=== PATIENT | female | born 1975 | race Caucasian/White ===

== ENCOUNTER 2024-05-19 10:29 | Outpatient (AMB) | payer OTHER, SELFPAY ==
--- NOTE | 2024-05-19 10:36 | MHC.PC.OV ---
Vital Signs 05/19/24 10:51 Height 5 ft 3.23 in Weight 174 lb 2 oz BMI 30.6 BP 122/84 Blood Pressure Location Rt brachial Position Sitting Pulse 74 Pulse Source Pulse Oximeter Temp 98.4 F Temp Source Oral Pulse Oximetry (%) 99 Oxygen Delivery Method Room Air Intake Visit Reasons: gwen anjali /Review meds Intake Note: New patient visit. Sinus congestion and sore throat. Environmental Monitoring Technician Required: No Allergies No Known Allergies Allergy (Verified 05/19/24 10:47) Tobacco use date assessed: 05/19/24 Dental Screening Dental Screen Date: 05/19/24 Did you have a dental visit in the last 12 months?: Yes Did you have a dental problem in the last 6 months where you did not have access to dental care?: No Was dental information given to patient?: Patient has dentist HPI HPI Comments History of Present Illness Details The patient is a 49 year old female with a past medical history of depression/anxiety, memory loss presenting to [facility] care BH: stable on sertraline, memantine ROS CONSTITUTIONAL: Denies weight loss, fever and chills. HEENT: sinus congestion RESPIRATORY: Denies SOB and cough. CV: Denies palpitations and CP GI: Denies abdominal pain, nausea, vomiting and diarrhea. : Denies dysuria and urinary frequency. MSK: Denies new myalgia and joint pain. SKIN: Denies rash and pruritus. NEUROLOGICAL: Denies headache PSYCHIATRIC: Denies recent changes in mood. PHYSICAL EXAM: GENERAL: Alert and oriented x 3. NAD EYES: EOMI. Anicteric. HENT: boggy nasal mucosa LUNGS: Clear to auscultation bilaterally. CARDIOVASCULAR: Regular rate and rhythm. No murmur. No JVD. ABDOMEN: Soft, non-tender +bs EXTREMITIES: No edema. Non-tender. SKIN: No rashes or lesions. Warm. NEUROLOGIC: No focal neurological deficits. CN II-XII grossly intact PSYCHIATRIC: Cooperative. 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 1. Little interest or pleasure in doing things: not at all 2. Feeling down, depressed, or hopeless: not at all 3. Trouble falling or staying asleep, or sleeping too much: not at all 4. Feeling tired or having little energy: several days 5. Poor appetite or overeating: several days 6. Feeling bad about yourself - or that you are a failure or have let yourself or your family down: not at all 7. Trouble concentrating on things, such as reading the newspaper or watching television: not at all 8. Moving or speaking so slowly that other people could have noticed. Or the opposite - being so fidgety or restless that you have been moving around a lot more than usual: not at all 9. Thoughts that you would be better off or of hurting yourself in some way: not at all Total score: 2 Depression Screening Interpretation: Negative Depression Screening Done: Yes 68744 - PHQ-9 Billing: Yes Source: Developed by Drs. Piyush Moreno, Rose Marie Burnett, Jordy Mccallum and colleagues, with an educational simran from [employer]. Thrive Questionnaire Date Thrive assessed: 05/12/24 I am a: Patient What is your living situation today?: I have a steady place to live Within the past 12 months, did the food you bought not last and you didn't have the money to get more?: Never true Within the past 12 months, did you worry whether your food would run out before you got money to buy more?: Never true Do you have trouble paying for medicines?: No Do you have trouble getting transportation to medical appointments?: No Do you have trouble paying your heating and electricity bill?: No Do you have trouble taking care of your child, family member or friend?: No Do you have trouble with day-to-day activities such as bathing, preparing meals, shopping, managing finances, etc.?: No Are you currently unemployed and looking for a job?: No Are you interested in more education?: No Please select the resources that you would like help with: None Currently or been in a relationship where the following occur: No concerns reported THRIVE Score: 0 AUDIT C Alcohol Use Questionnaire (AUDIT-C) 1. How often do you have a drink containing alcohol?: 2-4 times a month 2. How many drinks containing alcohol do you have on a typical day when you are drinking?: 1 or 2 3. How often do you have six or more drinks on one occasion?: Never Total Score: 2 ODETTE-7 AMB Questionnaire ODETTE-7 Date ODETTE - 7 assessed: 05/19/24 Feeling nervous, anxious, or on edge: 1 = Several days Not being able to stop or control worryin = Not at all Worrying too much about different things: 0 = Not at all Trouble relaxin = Not at all Being so restless that it is hard to sit still: 0 = Not at all Becoming easily annoyed or irritable: 0 = Not at all Feeling afraid as if something awful might happen: 0 = Not at all Total ODETTE-7 score (0-4 normal; 5-9 mild; 10-14 moderate; 15-21 severe): 1 Source: Developed by Drs. Piyush Moreno, Rose Marie Burnett, Jordy Mccallum and colleagues, with an educational simran from [employer]. ODETTE-7 Assessment Billing ODETTE-7 Assessment Tool: ODETTE-7 Assessment 25877 Physical exam (Primary Care) Vital Signs: Last Vital Signs Temp 98.4 F 05/19/24 10:51 Pulse 74 05/19/24 10:51 BP 122/84 05/19/24 10:51 Pulse Ox 99 05/19/24 10:51 Oxygen Delivery Method Room Air 05/19/24 10:51 BMI result Body Mass Index 30.6 Tobacco/Smoking Status: Tobacco use Status Tobacco use date assessed 05/19/24 05/19/24 11:01 Patient Tobacco Use Status Never used Tobacco 05/19/24 11:01 e-Cigarette/Vaping Use Never Used 05/19/24 11:01 PHQ-9: PHQ-9 Score PHQ-9: Total score 2 06/06/24 18:46 Depression Screening Interpretation: Negative Thrive Assessment: Date of Thrive Assessment Date Thrive assessed 05/12/24 05/19/24 10:42 Currently or been in a relationship where the following occur: No concerns reported Coding Level of Care Code Est Pt Level 4 (63954) Diagnoses Elevated cholesterol E78.00 Anxiety F41.9 Additional Codes ODETTE-7 Assessment Billing - ODETTE-7 Assessment Tool: ODETTE-7 Assessment 53025 ([id number]) PHQ-9 - 14610 - PHQ-9 Billing: Yes ([id number]) Assessment & Plan Assessment & Plan (1) Elevated cholesterol: Code(s): E78.00 - Pure hypercholesterolemia, unspecified Category: Medical Plan: Continue to monitor labs (2) Anxiety: Code(s): F41.9 - Anxiety disorder, unspecified Category: Medical Plan: Continue sertraline, memantine Orders: Referrals [facility] Referral R63.5 - Abnormal weight gain, E78.00 - Pure hypercholesterolemia, unspecified, F41.9 - Anxiety disorder, unspecified Gastroenterology Referral Z12.11 - Encounter for screening for malignant neoplasm of colon Medications: New sertraline 75 mg (1.5 x 50 mg) PO DAILY 135 tabs 3RF 90 days amoxicillin-pot clavulanate 875-125 mg 1 tab PO BID 20 tabs 0RF amoxicillin-pot clavulanate 875-125 mg 1 tab PO BID 20 tabs 0RF
[2024-05-19 10:51] VITALS: BP 122/84; PULSE 74; TEMP 36.9; O2SAT 99; BMI 30.6
== END 2024-05-19 11:33 | disposition home or self-care (01) ==
PROVIDERS: PCP Internal Medicine; Visit Provider Internal Medicine
DX: E78.00 Pure hypercholesterolemia, unspecified (principal); F41.9 Anxiety disorder, unspecified

== ENCOUNTER 2024-08-28 15:01 | Outpatient (AMB) | payer OTHER, SELFPAY ==
[2024-08-28 15:03] VITALS: BP 136/90; PULSE 62; O2SAT 100
--- NOTE | 2024-08-28 15:03 | AM.OFFWIN_ITS ---
Intake Vital Signs 08/28/24 15:03 Weight 175 lb BP 136/90 H Blood Pressure Location Lt brachial Position Sitting Pulse 62 Pulse Source Pulse Oximeter Pulse Oximetry (%) 100 Oxygen Delivery Method Room Air Intake Visit Reasons: EP Pressure in rt ear, dizzy Intake Note: Patient here for right ear pressure that has been present for a couple of days but today while at work she became dizzy. Patient Tobacco Use Status: Never used Tobacco Allergies No Known Allergies Allergy (Verified 08/28/24 15:03) Do you need a note to return to daycare/school/sports/work: No HPI HPI Comments History of Present Illness Details 49 y/o female patient who presents to [facility] with c/o right ear pressure for 2 days. C/o Feeling Dizzy this morning. Denies any recent cold or respiratory infection. Denies any head trauma or injury. 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 Current occupational exposures/hazards: No Cognitive needs: No Hearing needs: No Vision needs: No Review of Systems Const All systems reviewed & are unremarkable except as noted in HPI and below Physical Exam Vital Signs: Last Vital Signs Pulse 62 08/28/24 15:03 BP 136/90 H 08/28/24 15:03 Pulse Ox 100 08/28/24 15:03 Oxygen Delivery Method Room Air 08/28/24 15:03 Const General: cooperative and no acute distress Nutritional Appearance: overweight Orientation/consciousness: patient oriented x3 HEENT Head: Yes normocephalic Ears: external ears normal and TM abnormal bulging bilateral and with fluid behind the TM bilateral General nose exam: Abnormal mucous membranes and turbinates present pale Face and sinus: Yes sinuses nontender Mouth: moist mucous membranes Throat: Yes uvula midline Resp Effort & Inspection: normal respiratory effort and able to speak in complete sentences Auscultation: clear to auscultation bilaterally, no crackles, no rales, no rhonchi and no wheezes Cardio Heart sounds: S1 normal heart sound present and S2 normal heart sound present Neuro General: patient oriented x3 Assessment & Plan Assessment & Plan (1) Dizziness: Code(s): R42 - Dizziness and giddiness Plan: Ordered Cetirizine Fluid behind both TM No signs of infection. (2) Fluid level behind tympanic membrane of both ears: Code(s): H65.93 - Unspecified nonsuppurative otitis media, bilateral Plan: Ordered Cetirizine Fluid behind both TM No signs of infection Medications: New cetirizine (Zyrtec) 10 mg PO DAILY 30 caps 0RF H65.93 - Unspecified nonsuppurative otitis media, bilateral, R42 - Dizziness and giddiness Coding Level of Care Code Est Pt Level 4 (46423) Diagnoses Dizziness R42 Fluid level behind tympanic membrane of both ears H65.93 Time Spent (min) 20
--- OUTSIDE RECORDS SUMMARY | 2024-08-28 18:44 | XMS_ITS | Clinical Summary ---
Author Organization [facility] Address [address] [place] [address] Phone Care Team Providers Care Material Dispatcher Name Role Phone Danna Bergeron MD Primary Care Provider Allergies No known active allergies Medications brimonidine-arnav oloL (COMBIGAN) 0.2-0.5 % ophthalmic solution OU QD Active bromfenac 0.07 % drops apply 1 Drop to the eye daily. Once drop in each eye once a day Active ibuprofen (ADVIL,MOTRIN) 600 mg tablet 1tab PO now 0 Active memantine HCl (MEMANTINE ORAL) Take 10 mg by mouth daily. Active sertraline (ZOLOFT) 50 mg tablet Take 1.5 Tablets by mouth daily. 4 Active polyethylene glycol (Golytely) 236-22.74-6.74 -5.86 gram solution Take 4L by mouth once for one dose. May substitue any PEG. Starting at 6PM the night before your procedure drink 1 8oz glasses at your own pace until you complete half of the gallon. Finish 2nd half of the gallon 5 hours before your procedure. 4000 mL 4 Active bisacodyL (DULCOLAX) 5 mg EC tablet Take 2 tablets by mouth right before beginning bowel prep. See instructions provided by the office 2 tablet 4 Active multivitamin tablet Take 1 tablet by mouth 1 (one) time each day. 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 Overview (05/05/2024): Pars planitis - followed by dean Xavier - Idiopathic anterior and intermediate uveitis, OU; secondary glaucoma; posterior subcapsular cataract OS-steroid induced Encounters Date Type Department Care Team Description 06/12/2024 2:13 PM EST Anesthesia Event [facility] [address] [place] [address] Negrito Roach MD 06/12/2024 12:52 PM EST - 06/12/2024 11:59 PM EST Hospital Encounter [facility] [address] [place] [address] Yanick Muniz MD Chang, Daniel J, MD Encounter for screening for malignant neoplasm of colon Discharge Disposition: Home or Self Care from Last 3 Months Immunizations Name Administration Dates Next Due Influenza Quadravalent, MDCK , 0.5ml, preservative free (Flucelvax) 6mo and older 03/14/2021 PPD Test 04/18/2011,08/24/2009 Td Tetanus diptheria (Tdvax) 7yo and older 03/02 Tdap Tetanus diptheria acell ular pertussis (Boostrix; Adacel) 7yo and older 07/24/2018 Surgical History Surgery Date Site/Laterality Comments OTHER SURGICAL HISTORY 2007 PROCEDURE: [place] VITRECTOMY PARS PLANA REMOVE INT MEMB RETINA; COMMENT: right eye and left CATARACT EXTRACTION PROCEDURE: HISTORICAL CATARACT REMOVAL; COMMENT: Left Medical History Medical History Date Comments Unspecified iridocyclitis DX:Uns pecified iridocyclitis; COMMENT: followed by dean 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 DX:Uns pecified iridocyclitis; COMMENT: followed by dean Xavier - Idiopathic anterior and intermediate uveitis, OU; secondary glaucoma; posterior subcapsular cataract OS-steroid induced Cataract DX:Cataract Anxiety Perisplenitis Glaucoma Uveitis Family History Relation Name Status Comments Son 1 Alive 1 Son healthy - PT IS ADOPTED NO OTHER FAMILY HX AVAILABLE Son 2 Teminated secon d for severe hydrocephally and spina bifida Social History Tobacco Use Types Packs/Day Years Used Date Smoking Tobacco: Never Smokeless Tobacco: Never Alcohol Use Standard Drinks/Week Comments Yes 0 (1 standard drink = 0.6 oz pur e alcohol) Interpersonal Safety Answer Date Record ed Physical Abuse 06/12/2024 Verbal Abuse 06/12/2024 Comments No Sex and Gender Information Value Date Recorded Sex Assigned at Female 06/11/2024 8:23 AM EST Legal Sex Female 9:48 PM EST Gender Identity Female 06/11/2024 8:23 AM EST Sexual Orientation Straight 06/11/2024 8: 23 AM EST Obstetrics History Last Filed Vital Signs Vital Sign Reading Time Taken Comments Blood Pressure 104/64 06/12/2024 2:53 PM EST Pulse 65 06/12/2024 2:53 PM EST Temperature 35.9 ??C (96.7 ??F) 06/12/2024 2:33 PM ES T Respiratory Rate 19 06/12/2024 2:53 PM EST Oxygen Saturation 99% 06/12/2024 2:53 PM EST Inhaled Oxygen Concentration - - Weight 77.1 kg (170 lb) 06/12/2024 1:25 PM EST Height 160 cm (5' 3 ) 06/12/2024 1:25 PM EST Body Mass Index 30.11 06/12/2024 1:25 PM EST Plan of Treatment Health Maintenance Due Date Last Done Comments Breast Cancer Screening 1975 Hepatitis B Vaccines (1 of 3 - 19+ 3-dose series) 1993 Cervical Cancer Screening: P ap Smear 04/18/2016 04/18/2013, 04/18/2013 Depression Screening 05/13/2022 HIV Screening 05/13/2022 Hepatitis C Screening 05/13/2022 Social Influencers of Health Screening 05/13/2022 COVID-19 Vaccine ( - 2023-2 5 season) 2024 05/18/2021, 09/15/2020, 08/25/2020 Influenza Vaccine (#1) 2024 , 03/14/2021, 05/22/2020 Pneumococcal Vaccine: 50+ Years (1 of 1 - PCV) 02/20/2024 Zoster Vaccines (1 of 2) 02/20/2024 DTaP,Tdap,and Td Vaccines (3 - Td or Tdap) 07/24/2028 07/24/2018, 03/02/2003 Cholesterol Screening (Lipid Panel) 01/03/2029 01/04/2024, 01/04/2024 Colorectal Cancer Screening: Colonoscopy 06/12/2034 06/12/2024 HIB Vaccines Aged Out No longer eligi ble based on patient's age to complete this topic HPV Vaccines Aged Out No longer eligi ble based on patient's age to complete this topic Hepatitis A Vaccines Aged Out No long er eligible based on patient's age to complete this topic IPV Vaccines Aged Out No longer eligi ble based on patient's age to complete this topic MMR Vaccines Aged Out No longer eligi ble based on patient's age to complete this topic Meningococcal ACWY Vaccine Aged Out N o longer eligible based on patient's age to complete this topic Meningococcal B Vacine Aged Out No lo nger eligible based on patient's age to complete this topic Pneumococcal Vaccine: Pediatrics (0 to 5 Years) and At-Risk Patients (6 to 64 Years) Aged Out No longer eligible b ased on patient's age to complete this topic RSV Immunization Patients Under 20 months Aged Out No longer eligible b ased on patient's age to complete this topic Varicella Vaccines Aged Out No longer eligible based on patient's age to complete this topic Procedures Procedure Name Priority Date/Time Associated Diagnosis Comments COLONOSCOPY Routine 06/12/2024 2:32 PM EST Encounter for screening for malignant neoplasm of colon LIPID PANEL Routine 01/04/2024 HM HPV Routine 04/18/2013 from Last 3 Months or Most Recently Relevant to Health Maintenance Results * COLONOSCOPY Anesthesia - MAC; [facility] ENDOSCOPY (06/12/2024 2:32 PM EST) Anatomical Region Laterality Modality Endoscopy 06/12/2024 2:17 PM EST Impressions 06/12/2024 2:35 PM EST - The entire examined colon is normal on direct and ? retroflexion views. ? - No specimens collected. Recommendation: ?- Discharge patient to home. ? - Repeat colonoscopy in 10 years for screening ? purposes. Narrative 06/12/2024 2:35 PM EST [facility] GI Patient Name: Molly Forbes Procedure Date: 06/12/2024 2:17 PM Date of : 1975 Age: 49 Gender: Female Note Status: Finalized Attending MD: Yanick Muniz MD, Procedure Date No Time: 06/12/2024 Procedure: ? Colonoscopy Indications: ? Screening for colorectal malignant neoplasm Providers: ? Yanick Muniz MD Referring MD: ?Yanick Muniz MD Medicines: ? Monitored Anesthesia Care Complications: ? No immediate complications. Estimated Blood Loss: ? Estimated blood loss: none. Procedure: ? Pre-Anesthesia Assessment: ? - Prior to the procedure, a History and Physical was ? performed, and patient medications and allergies were ? reviewed. The patient is competent. The risks and ? benefits of the procedure and the sedation options and ? risks were discussed with the patient. All questions ? were answered and informed consent was obtained. ? Patient identification and proposed procedure were ? verified by the physician, the nurse, the computer network engineer ? and the diesel technician in the pre-procedure area in the ? endoscopy suite. Mental Status Examination: alert and ? oriented. Airway Examination: normal oropharyngeal ? airway and neck mobility. Respiratory Examination: ? clear to auscultation. CV Examination: normal. ? Prophylactic Antibiotics: The patient does not require ? prophylactic antibiotics. Prior Anticoagulants: The ? patient has taken no anticoagulant or antiplatelet ? agents. ASA Grade Assessment: II - A patient with mild ? systemic disease. After reviewing the risks and ? benefits, the patient was deemed in satisfactory ? condition to undergo the procedure. The anesthesia ? plan was to use monitored anesthesia care (MAC). ? Immediately prior to administration of medications, ? the patient was re-assessed for adequacy to receive ? sedatives. The heart rate, respiratory rate, oxygen ? saturations, blood pressure, adequacy of pulmonary ? ventilation, and response to care were monitored ? throughout the procedure. The physical status of the ? patient was re-assessed after the procedure. ? After I obtained informed consent, the scope was ? passed under direct vision. Throughout the procedure, ? the patient's blood pressure, pulse, and oxygen ? saturations were monitored continuously. The Olympus ? Colonoscope was introduced through the anus and ? advanced to the cecum, identified by appendiceal ? orifice and ileocecal valve. The colonoscopy was ? performed without difficulty. The patient tolerated ? the procedure well. The quality of the bowel ? preparation was excellent. Findings: ?The perianal and digital rectal examinations were ? normal. ? The entire examined colon appeared normal on direct ? and retroflexion views. Procedure Code(s): ? --- Professional --- ? G0121, Colorectal cancer screening; colonoscopy on ? individual not meeting criteria for high risk Diagnosis Code(s): ? --- Professional --- ? Z12.11, Encounter for screening for malignant neoplasm ? of colon CPT copyright 202 [employer]. All rights reserved. The codes documented in this report are preliminary and upon hydraulic operator review may be revised to meet current compliance requirements. Yanick Muniz MD 06/12/2024 2:35:50 PM This report has been signed electronically.Yanick Muniz MD Number of Addenda: 0 Note Initiated On: 06/12/2024 2:17 PM Scope Withdrawal Time: 0 hours 7 minutes 48 seconds Scope In: 2:21:02 PM Scope Out: 2:33:17 PM ? Endoscopy Department at [facility] - [address] [place] [address], ? [place] [address] Procedure Note Yanick Muniz MD - 06/12/2024 [facility] GI Patient Name: Molly Forbes Procedure Date: 06/12/2024 2:17 PM Date of : 1975 Age: 49 Gender: Female Note Status: Finalized Attending MD: Yanick Muniz MD, Procedure Date No Time: 06/12/2024 Procedure: Colonoscopy Indications: Screening for colorectal malignant neoplasm Providers: Yanick Muniz MD Referring MD: Yanick Muniz MD Medicines: Monitored Anesthesia Care Complications: No immediate complications. Estimated Blood Loss: Estimated blood loss: none. Procedure: Pre-Anesthesia Assessment: - Prior to the procedure, a History and Physicalwas performed, and patient medications and allergieswere reviewed. The patient is competent. The risks and benefits of the procedure and the sedation optionsand risks were discussed with the patient. Allquestions were answered and informed consent was obtained. Patient identification and proposed procedure were verified by the physician, the nurse, theanesthetist and the diesel technician in the pre-procedure area in the endoscopy suite. Mental Status Examination: alertand oriented. Airway Examination: normal oropharyngeal airway and neck mobility. Respiratory Examination: clear to auscultation. CV Examination: normal. Prophylactic Antibiotics: The patient does notrequire prophylactic antibiotics. Prior Anticoagulants: The patient has taken no anticoagulant or antiplatelet agents. ASA Grade Assessment: II - A patient withmild systemic disease. After reviewing the risks and benefits, the patient was deemed in satisfactory condition to undergo the procedure. The anesthesia plan was to use monitored anesthesia care (MAC). Immediately prior to administration of medications, the patient was re-assessed for adequacy to receive sedatives. The heart rate, respiratory rate, oxygen saturations, blood pressure, adequacy of pulmonary ventilation, and response to care were monitored throughout the procedure. The physical status ofthe patient was re-assessed after the procedure. After I obtained informed consent, the scope was passed under direct vision. Throughout theprocedure, the patient's blood pressure, pulse, and oxygen saturations were monitored continuously. TheOlympus Colonoscope was introduced through the anus and advanced to the cecum, identified by appendiceal orifice and ileocecal valve. The colonoscopy was performed without difficulty. The patient tolerated the procedure well. The quality of the bowel preparation was excellent. Findings: The perianal and digital rectal examinations were normal. The entire examined colon appeared normal on direct and retroflexion views. Procedure Code(s): --- Professional --- G0121, Colorectal cancer screening; colonoscopy on individual not meeting criteria for high risk Diagnosis Code(s): --- Professional --- Z12.11, Encounter for screening for malignantneoplasm of colon CPT copyright 2020 [employer]. All rights reserved. The codes documented in this report are preliminary and upon hydraulic operator reviewmay be revised to meet current compliance requirements. Yanick Muniz MD 06/12/2024 2:35:50 PM This report has been signed electronically.Yanick Muniz MD Number of Addenda: 0 Note Initiated On: 06/12/2024 2:17 PM Scope Withdrawal Time: 0 hours 7 minutes 48 seconds Scope In: 2:21:02 PM Scope Out: 2:33:17 PM Endoscopy Department at [facility] - [address] [place] [id number] IMPRESSION: - The entire examined colon is normal on direct and retroflexion views. - No specimens collected. Recommendation: - Discharge patient to home. - Repeat colonoscopy in 10 years for screening purposes. Yanick Muniz MD GI~PROCEDURE ORDERABLES Fin al Result * (ABNORMAL) Lipid panel (01/04/2024) LDL/HDL Ratio 3 0 - 4 Triglycerides 64 0 - 150 mg/dL Cholesterol 215(A) 0 - 200 mg/dL HDL 83 >=40 mg/dL LDL Cholesterol 120(A) 0 - 100 mg/dL Blood Venous blood specimen / Unknown Historical Provider LAB BLOOD ORDERABLES Harriet l Result * Cervical Cancer Screening: HPV (04/18/2013) Cervical Cancer Screening: HPV Abstracted ,Negative Historical Provider HEALTH MAINTENANCE Final Result from Last 3 Months or Most Recently Relevant to Health Maintenance [place] [address] [place] [address] [place] [address] Care Teams Material Dispatcher Relationship Specialty Start Date End Date Danna Bergeron MD [address] [place] [id number] PCP - General Internal Medicine 03/08/22
== END 2024-08-28 15:50 | disposition home or self-care (01) ==
PROVIDERS: PCP Internal Medicine; Visit Provider Nurse Practitioner Family
DX: R42 Dizziness and giddiness (principal); H65.93 Unspecified nonsuppurative otitis media, bilateral

== ENCOUNTER 2024-09-03 10:19 | Outpatient (AMB) | payer OTHER, SELFPAY ==
--- NOTE | 2024-09-03 10:23 | MHC.PC.OV ---
Vital Signs 09/03/24 10:28 Height 5 ft 3.23 in Weight 171 lb 6 oz BMI 30.1 BP 108/70 Blood Pressure Location Rt brachial Position Sitting Respiration 12 Pulse 55 Pulse Source Pulse Oximeter Temp 98.1 F Temp Source Oral Pulse Oximetry (%) 100 Oxygen Delivery Method Room Air Intake Visit Reasons: ear blockage (dr xie pt but no space for her) Intake Note: Fluid in both ears. Went to [facility] urgent [facility] on the . They told pt to take zyrtec and flonase. Symtoms started the Sunday prior. Plant Taxonomist Required: No Allergies No Known Allergies Allergy (Verified 09/03/24 10:27) Medication List - Last Reconciled 09/03/24 by Raina Hedrick PA-C brimonidine-timolol 0.2-0.5 % (Combigan) drps ophthalmic (eye) bromfenac 0.07% (Prolensa) 1 drp ophthalmic (eye) DAILY cetirizine (Zyrtec) 10 mg PO BID fluticasone propionate 50 mcg/actuation (Flonase Allergy Relief) 1 spray intranasal DAILY memantine 10 mg PO DAILY sertraline 75 mg (1.5 x 50 mg) PO DAILY 90 days Tobacco use date assessed: 09/03/24 Dental Screening Dental Screen Date: 05/19/24 HPI ear blockage (dr xie pt but no space for her) HPI Details Patient is a 49-year-old female with a significant past medical history of anxiety, depression presenting today for an acute problem visit. She states that for the last 1.5 weeks of feeling fluid in the ears. she started zyrtec and flonase without impromvement. She states that she does not have hearing loss but it does sound like she is underwater in the hearing is muffled. No ear pain or dizziness. No sinus pain or pressure but does feel some congestion. She has experienced some itchy, watery eyes. States that her symptoms are consistent with allergies but she does not normally have allergies this time of year. No fever or chills. No headache or vision changes. Does not tolerate steroids. She does complain today of her underlying anxiety and depression. She says that she just does not feel like she wants to do as much anymore and she is not sure if that this is related to menopause/hormones or if this is just her. She has been on sertraline 75 mg for about 5 years or so and does not feel like this is effective or the drug for her anymore. She says that she was initially on this medication because her son tried to commit suicide in 2019. She has been in regular therapy and she states that her therapist recommends that she switch medications. She recommended possibly trying Wellbutrin but the patient states that she has an underlying level of anxiety and she is worried about that getting exacerbated. She has motivation to get up and do things she just does not care to do a lot of things. No SI/HI. 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 1. Little interest or pleasure in doing things: not at all 2. Feeling down, depressed, or hopeless: not at all 3. Trouble falling or staying asleep, or sleeping too much: not at all 4. Feeling tired or having little energy: not at all 5. Poor appetite or overeating: not at all 6. Feeling bad about yourself - or that you are a failure or have let yourself or your family down: not at all 7. Trouble concentrating on things, such as reading the newspaper or watching television: not at all 8. Moving or speaking so slowly that other people could have noticed. Or the opposite - being so fidgety or restless that you have been moving around a lot more than usual: not at all 9. Thoughts that you would be better off or of hurting yourself in some way: not at all Total score: 0 Depression Screening Interpretation: Negative Depression Screening Done: Yes 02984 - PHQ-9 Billing: Yes Source: Developed by Drs. Piyush Moreno, Rose Marie Burnett, Jordy Mccallum and colleagues, with an educational simran from [employer] Thrive Questionnaire Date Thrive assessed: 09/02/24 I am a: Patient What is your living situation today?: I have a steady place to live Within the past 12 months, did the food you bought not last and you didn't have the money to get more?: Never true Within the past 12 months, did you worry whether your food would run out before you got money to buy more?: Never true Do you have trouble paying for medicines?: No Do you have trouble getting transportation to medical appointments?: No Do you have trouble paying your heating and electricity bill?: No Do you have trouble taking care of your child, family member or friend?: No Do you have trouble with day-to-day activities such as bathing, preparing meals, shopping, managing finances, etc.?: No Are you currently unemployed and looking for a job?: No Are you interested in more education?: No Please select the resources that you would like help with: None Currently or been in a relationship where the following occur: No concerns reported THRIVE Score: 0 AUDIT C Alcohol Use Questionnaire (AUDIT-C) 1. How often do you have a drink containing alcohol?: 2-4 times a month 2. How many drinks containing alcohol do you have on a typical day when you are drinking?: 1 or 2 3. How often do you have six or more drinks on one occasion?: Less than monthly Total Score: 3 ODETTE-7 AMB Questionnaire ODETTE-7 Date ODETTE - 7 assessed: 09/03/24 Feeling nervous, anxious, or on edge: 1 = Several days Not being able to stop or control worryin = Not at all Worrying too much about different things: 0 = Not at all Trouble relaxin = Not at all Being so restless that it is hard to sit still: 0 = Not at all Becoming easily annoyed or irritable: 0 = Not at all Feeling afraid as if something awful might happen: 0 = Not at all Total ODETTE-7 score (0-4 normal; 5-9 mild; 10-14 moderate; 15-21 severe): 1 Source: Developed by Drs. Piyush Moreno, Rose Marie Burnett, Jordy Mccallum and colleagues, with an educational simran from [employer] ODETTE-7 Assessment Billing ODETTE-7 Assessment Tool: ODETTE-7 Assessment 06623 Physical exam (Primary Care) Vital Signs: Last Vital Signs Temp 98.1 F 09/03/24 10:28 Pulse 55 09/03/24 10:28 Resp 12 09/03/24 10:28 BP 108/70 09/03/24 10:28 Pulse Ox 100 09/03/24 10:28 Oxygen Delivery Method Room Air 09/03/24 10:28 BMI result Body Mass Index 30.1 Tobacco/Smoking Status: Tobacco use Status Tobacco use date assessed 09/03/24 09/03/24 10:32 Patient Tobacco Use Status Never used Tobacco 09/03/24 10:54 e-Cigarette/Vaping Use Never Used 09/03/24 10:54 PHQ-9: PHQ-9 Score PHQ-9: Total score 0 09/03/24 10:36 Depression Screening Interpretation: Negative Thrive Assessment: Date of Thrive Assessment Date Thrive assessed 09/02/24 09/03/24 10:25 Currently or been in a relationship where the following occur: No concerns reported Const Orientation/consciousness: patient oriented x3 HENMT Other: TMs noted to have small air-fluid levels bilaterally. No erythema. Negative tug test. Able to hear a finger rub bilaterally. Nasal mucosa pale and edematous. No drainage noted. No maxillary sinus tenderness present. No frontal sinus tenderness present Ears: hearing grossly normal bilaterally Neck Thyroid: Thyroid normal Lymphatic: no lymphadenopathy noted Resp Auscultation: clear to auscultation bilaterally Cardio Rate: regular rate Rhythm: regular rhythm Heart sounds: S1 normal heart sound present and S2 normal heart sound present GI Inspection: Yes normal to inspection Palpation (GI): Soft to palpation and Other GI palpation findings present (nontender, no cva tenderness) Auscultation: normoactive bowel sounds Rectal Exam - Female: deferred Skin General skin exam: no rashes or lesions noted Neuro General: patient oriented x3, gait normal and no focal motor deficits Coding Level of Care Code Est Pt Level 4 (89917) Complex EM visit Add On G2211 Diagnoses Fluid level behind tympanic membrane of both ears H65.93 Anxiety with depression F41.8 Additional Codes ODETTE-7 Assessment Billing - ODETTE-7 Assessment Tool: ODETTE-7 Assessment 66206 ([id number]) PHQ-9 - 41596 - PHQ-9 Billing: Yes ([id number]) Assessment & Plan Assessment & Plan (1) Fluid level behind tympanic membrane of both ears: Code(s): H65.93 - Unspecified nonsuppurative otitis media, bilateral Category: Medical Plan: We will trial Xyzal and Flonase. She just started the Flonase I advised her to try this with an oral antihistamine for a couple weeks to see if this improves her symptoms. We discussed that she could try a decongestant to help dry out her symptoms Zyrtec is making her feel drowsy. Referral to ENT (2) Anxiety with depression: Code(s): F41.8 - Other specified anxiety disorders Category: Medical Plan: Discontinue sertraline. We will start Effexor. Discussed risks and benefits and adverse effects of this medication. Advised to seek emergent medical treatment should she develop any SI/HI. Continue following with behavioral health. Follow up in 4-6 weeks to be re-evaluated. Orders: Referrals Ear/Nose/Throat Referral H65.93 - Unspecified nonsuppurative otitis media, bilateral Medications: New levocetirizine (Xyzal) 5 mg PO QPM 30 tabs 1RF venlafaxine ER (Effexor XR) 37.5 mg PO BEDTIME 90 caps 0RF Discontinued sertraline Discontinued Reason: Doctor's Order 75 mg (1.5 x 50 mg) PO DAILY 90 days 135 tabs 3RF
[2024-09-03 10:28] VITALS: BP 108/70; PULSE 55; RESP 12; TEMP 36.7; O2SAT 100; BMI 30.1
--- OUTSIDE RECORDS SUMMARY | 2024-09-03 12:05 | XMS_ITS | Clinical Summary ---
Author Organization [facility] Address [address] [place] [address] Phone Care Team Providers Care Box Coverer Hand Name Role Phone Danna Bergeron MD Primary [...] Description 06/12/2024 2:13 PM EST Anesthesia Event [facility] [address] [place] [phone] Negrito Roach MD 06/12/2024 12:52 PM EST - 06/12/2024 11:59 PM EST Hospital Encounter [facility] [address] [place] [address] Yanick Muniz MD Chang, Daniel J, MD [...] Site/Laterality Comments OTHER SURGICAL HISTORY 2007 PROCEDURE: VA VITRECTOMY PARS PLANA REMOVE INT MEMB RETINA; [...] Maintenance Results * COLONOSCOPY Anesthesia - MAC; [facility] ENDOSCOPY (06/12/2024 2:32 PM EST) Anatomical Region Laterality Modality Endoscopy 06/12/2024 2:17 PM EST Impressions 06/12/2024 2:35 PM EST - The entire examined colon is normal on direct and ? retroflexion views. ? - No specimens collected. Recommendation: ?- Discharge patient to home. ? - Repeat colonoscopy in 10 years for screening ? purposes. Narrative 06/12/2024 2:35 PM EST [facility] GI Patient Name: Molly Forbes Procedure [...] verified by the physician, the nurse, the 5th grade teacher ? and the neurology technician in the pre-procedure area in the [...] neoplasm ? of colon CPT copyright 202 [employer]. All rights reserved. The codes documented in this report are preliminary and upon field project manager review may be revised to meet current compliance requirements. Yanick Muniz MD 06/12/2024 2:35:50 PM This report has been signed electronically.Yanick Muniz MD Number of Addenda: 0 Note Initiated On: 06/12/2024 2:17 PM Scope Withdrawal Time: 0 hours 7 minutes 48 seconds Scope In: 2:21:02 PM Scope Out: 2:33:17 PM ? Endoscopy Department at [facility] - [address] [place] [address], ? [place] [address] Procedure Note Yanick Muniz MD - 06/12/2024 [facility] GI Patient Name: Molly Forbes Procedure [...] the physician, the nurse, theanesthetist and the neurology technician in the pre-procedure area in the [...] for malignantneoplasm of colon CPT copyright 2020 [employer]. All rights reserved. The codes documented in this report are preliminary and upon field project manager reviewmay be revised to meet current compliance requirements. Yanick Muniz MD 06/12/2024 2:35:50 PM This report has been signed electronically.Yanick Muniz MD Number of Addenda: 0 Note Initiated On: 06/12/2024 2:17 PM Scope Withdrawal Time: 0 hours 7 minutes 48 seconds Scope In: 2:21:02 PM Scope Out: 2:33:17 PM Endoscopy Department at [facility] - [address] [place] [id number] IMPRESSION: - The entire examined colon is [...] / Unknown Historical Provider LAB BLOOD ORDERABLES Hrariet l Result * Cervical Cancer Screening: HPV (04/18/2013) Cervical Cancer Screening: HPV Abstracted ,Negative Historical Provider HEALTH MAINTENANCE Final Result from Last 3 Months or Most Recently Relevant to Health Maintenance [place] [address] [place] [address] [place] [address] Care Teams Box Coverer Hand Relationship Specialty Start Date End Date Danna Bergeron MD [address] [place] [id number] PCP - General Internal Medicine 03/08/22
== END 2024-09-03 10:55 | disposition home or self-care (01) ==
LOC: HO.HMCFM 10:19
PROVIDERS: PCP Internal Medicine; Visit Provider Physician Assistant
DX: H65.93 Unspecified nonsuppurative otitis media, bilateral (principal); F41.8 Other specified anxiety disorders

== ENCOUNTER → 2024-09-03 10:19 | Outpatient (BNVA) | payer OTHER, SELFPAY | PROVIDERS: PCP Internal Medicine; Visit Provider Physician Assistant | DX: H65.93 Unspecified nonsuppurative otitis media, bilateral (principal); F41.8 Other specified anxiety disorders | CPT/HCPCS: 96127 ==

== ENCOUNTER 2024-10-09 12:49 | Outpatient (AMB) | payer OTHER, SELFPAY ==
--- NOTE | 2024-10-09 12:52 | MHC.PC.OV ---
Vital Signs 10/09/24 12:57 Height 5 ft 0.23 in Weight 168 lb 8 oz BMI 32.7 BP 122/84 Blood Pressure Location Rt brachial Position Sitting Respiration 12 Pulse 73 Pulse Source Pulse Oximeter Temp 98.8 F Temp Source Oral Pulse Oximetry (%) 99 Oxygen Delivery Method Room Air Intake Visit Reasons: cough fevr Intake Note: Cough started last Sunday and is getting worse. No taste of smell, headache. Took covid test at home yesterday which was negative. 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 Required: No Allergies No Known Allergies Allergy (Verified 10/09/24 12:55) Medication List - Last Reconciled 10/09/24 by Raina Hedrick PA-C brimonidine-timolol 0.2-0.5 % (Combigan) drps ophthalmic (eye) bromfenac 0.07% (Prolensa) 1 drp ophthalmic (eye) DAILY fluticasone propionate 50 mcg/actuation (Flonase Allergy Relief) 1 spray intranasal DAILY memantine 10 mg PO DAILY venlafaxine ER (Effexor XR) 37.5 mg PO BEDTIME Tobacco use date assessed: 10/09/24 Dental Screening Dental Screen Date: 05/19/24 HPI cough fevr HPI Details Patient is a 49-year-old female who presents today for an acute problem visit. She states that for about a week now she has had some sinus congestion, postnasal drip in a cough but over the weekend and this week everything has gotten worse. She says that she has noticed with the coughing she is also wheezing. It feels like it is in her lungs. She has felt feverish but no fever or chills. No nausea, vomiting or diarrhea. She states that she was playing pickleball and she notices that she can not do it without coughing and feeling some tightness. She has never had asthma before but states that this feels very similar. She says that she has also never struggled with allergies before but over this last few months she has had allergies. Psych: Recently started on venlafaxine 37.5 mg and she says that this is much more effective for her. No adverse effects. Tolerating the medication well. 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 Current occupational exposures/hazards: No Cognitive needs: No Hearing needs: No Vision needs: No Questionnaire Thrive Questionnaire Date Thrive assessed: 09/02/24 I am a: Patient What is your living situation today?: I have a steady place to live Within the past 12 months, did the food you bought not last and you didn't have the money to get more?: Never true Within the past 12 months, did you worry whether your food would run out before you got money to buy more?: Never true Do you have trouble paying for medicines?: No Do you have trouble getting transportation to medical appointments?: No Do you have trouble paying your heating and electricity bill?: No Do you have trouble taking care of your child, family member or friend?: No Do you have trouble with day-to-day activities such as bathing, preparing meals, shopping, managing finances, etc.?: No Are you currently unemployed and looking for a job?: No Are you interested in more education?: No Please select the resources that you would like help with: None Currently or been in a relationship where the following occur: No concerns reported THRIVE Score: 0 AUDIT C Alcohol Use Questionnaire (AUDIT-C) 1. How often do you have a drink containing alcohol?: Monthly or less 2. How many drinks containing alcohol do you have on a typical day when you are drinking?: 1 or 2 3. How often do you have six or more drinks on one occasion?: Never Total Score: 1 ODETTE-7 AMB Questionnaire ODETTE-7 Date ODETTE - 7 assessed: 09/03/24 Source: Developed by Drs. Piyush Moreno, Rose Marie Burnett, Jordy Mccallum and colleagues, with an educational simran from [employer] Physical exam (Primary Care) Vital Signs: Last Vital Signs Temp 98.8 F 10/09/24 12:57 Pulse 73 10/09/24 12:57 Resp 12 10/09/24 12:57 BP 122/84 10/09/24 12:57 Pulse Ox 99 10/09/24 12:57 Oxygen Delivery Method Room Air 10/09/24 12:57 BMI result Body Mass Index 32.7 Tobacco/Smoking Status: Tobacco use Status Tobacco use date assessed 10/09/24 10/09/24 13:00 Patient Tobacco Use Status Never used Tobacco 10/09/24 12:53 e-Cigarette/Vaping Use Never Used 10/09/24 12:53 Thrive Assessment: Date of Thrive Assessment Date Thrive assessed 09/02/24 10/09/24 12:53 Currently or been in a relationship where the following occur: No concerns reported Const Orientation/consciousness: patient oriented x3 HENMT Ears: hearing grossly normal bilaterally, external ears normal and TM's normal bilaterally Face and sinus: Yes sinus tenderness (Maxillary) Mouth: Normal oral and palatal mucosa present Neck Thyroid: Thyroid normal Lymphatic: no lymphadenopathy noted Resp Other: Right side clear. Left side there is wheezing and rhonchi which are noted in the left lower lobe. Cardio Rate: regular rate Rhythm: regular rhythm Heart sounds: S1 normal heart sound present and S2 normal heart sound present Skin General skin exam: no rashes or lesions noted Neuro General: patient oriented x3, gait normal and no focal motor deficits Coding Level of Care Code Est Pt Level 4 (55662) Complex EM visit Add On G2211 Diagnoses Anxiety with depression F41.8 Wheezing R06.2 Allergic rhinitis J30.9 Lung infection J18.9 Assessment & Plan Assessment & Plan (1) Anxiety with depression: Code(s): F41.8 - Other specified anxiety disorders Category: Medical Plan: Continue current regimen (2) Wheezing: Code(s): R06.2 - Wheezing Category: Medical Plan: Albuterol order to use as needed (3) Allergic rhinitis: Code(s): J30.9 - Allergic rhinitis, unspecified Category: Medical Plan: Advised to restart Flonase and Xyzal (4) Lung infection: Code(s): J18.9 - Pneumonia, unspecified organism Category: Medical Plan: Chest x-ray ordered We will start Augmentin and azithromycin for coverage of pneumonia. Discussed risks and benefits and adverse effects of the medication. Advised to use a probiotic. Orders: Orders XR chest 2V Today J18.9 - Pneumonia, unspecified organism Referrals Allergy & Immunology Referral J18.9 - Pneumonia, unspecified organism, J30.9 - Allergic rhinitis, unspecified, R06.2 - Wheezing Medications: New levocetirizine (Xyzal) 5 mg PO QPM 90 tabs 0RF amoxicillin-pot clavulanate 875-125 mg 1 tab PO BID 20 tabs 0RF albuterol sulfate 90 mcg/actuation 2 puffs inhalation Q4-6H PRN 8.5 grams 0RF shortness of breath or wheezing fluticasone propionate 50 mcg/actuation (Flonase Allergy Relief) administer into each nostril 1 spray intranasal DAILY 16 grams 0RF azithromycin For 250 mg dose pack: take 500 mg today (day 1), then 250 mg for 4 days (days 2-5) PO 6 tabs 0RF
[2024-10-09 12:57] VITALS: BP 122/84; PULSE 73; RESP 12; TEMP 37.1; O2SAT 99; BMI 32.7
--- OUTSIDE RECORDS SUMMARY | 2024-10-09 13:54 | XMS_ITS | Clinical Summary ---
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 (05/05/2024): Pars planitis - followed by dean Xavier - Idiopathic anterior and intermediate uveitis, OU; secondary glaucoma; posterior subcapsular cataract OS-steroid induced Immunizations Name Administration Dates Next Due Influenza Quadravalent, MDCK , 0.5ml, preservative free (Flucelvax) 6mo and older 03/14/2021 PPD Test 04/18/2011,08/24/2009 Td Tetanus diptheria (Tdvax) 7yo and older 03/02 Tdap Tetanus diptheria acell ular pertussis (Boostrix; Adacel) 7yo and older 07/24/2018 Surgical History Surgery Date Site/Laterality Comments OTHER SURGICAL HISTORY 2007 PROCEDURE: [place] VITRECTOMY PARS PLANA REMOVE INT MEMB RETINA; [...] Influencers of Health Screening 05/13/2022 COVID-19 Vaccine (4 - 2023-2 5 season) 2024 05/18/2021, 09/15/2020, 08/25/2020 Pneumococcal Vaccine: 50+ Years (1 of 1 - PCV) 02/20/2024 Zoster Vaccines (1 of 2) 02/20/2024 Influenza Vaccine (Season Ended) 2025 03/20/2022, 03/14/2021, 05/22/2020 DTaP,Tdap,and Td Vaccines (3 - Td or [...] age to complete this topic Meningococcal B Vaccine Aged Out No l onger eligible based on patient's age to complete [...] Maintenance Results * COLONOSCOPY Anesthesia - MAC; [facility] ENDOSCOPY (06/12/2024 2:32 PM EST) Anatomical Region Laterality Modality Endoscopy 06/12/2024 2:17 PM EST Impressions 06/12/2024 2:35 PM EST - The entire examined colon is normal on direct and ? retroflexion views. ? - No specimens collected. Recommendation: ?- Discharge patient to home. ? - Repeat colonoscopy in 10 years for screening ? purposes. Narrative 06/12/2024 2:35 PM EST [facility] GI Patient Name: Molly Forbes Procedure Date: [...] verified by the physician, the nurse, the retail selling specialist ? and the dental lab technician in the pre-procedure area in the [...] malignant neoplasm ? of colon CPT copyright 2020 [employer]. All rights reserved. The codes documented in this report are preliminary and upon chain builder loom control review may be revised to meet current compliance requirements. Yanick Muniz MD 06/12/2024 2:35:50 PM This report has been signed electronically.Yanick Muniz MD Number of Addenda: 0 Note Initiated On: 06/12/2024 2:17 PM Scope Withdrawal Time: 0 hours 7 minutes 48 seconds Scope In: 2:21:02 PM Scope Out: 2:33:17 PM ? Endoscopy Department at [facility] - [address] [place] [address], ? [place] [address] Procedure Note Yanick Muniz MD - 06/12/2024 [facility] GI Patient Name: Molly Forbes Procedure Date: [...] the physician, the nurse, theanesthetist and the dental lab technician in the pre-procedure area in the [...] for malignantneoplasm of colon CPT copyright 2020 [employer]. All rights reserved. The codes documented in this report are preliminary and upon chain builder loom control reviewmay be revised to meet current compliance requirements. Yanick Muniz MD 06/12/2024 2:35:50 PM This report has been signed electronically.Yanick Muniz MD Number of Addenda: 0 Note Initiated On: 06/12/2024 2:17 PM Scope Withdrawal Time: 0 hours 7 minutes 48 seconds Scope In: 2:21:02 PM Scope Out: 2:33:17 PM Endoscopy Department at [address] [address] IMPRESSION: - The entire examined colon is [...] Result * Cervical Cancer Screening: HPV (04/18/2013) Pathologist [facility] Cervical Cancer Screening: HPV Abstracted ,Negative Historical Provider HEALTH MAINTENANCE Final Result from Last 3 Months or Most Recently Relevant to Health Maintenance Insurance MELINDA ROSAS [id number] Care Teams Exercise Instruct Relationship Specialty Start Date End Date Danna Bergeron MD [address] [place] [id number] PCP - General Internal Medicine 03/08/22
== END 2024-10-09 13:23 | disposition home or self-care (01) ==
LOC: HO.HMCFM 12:50
PROVIDERS: PCP Internal Medicine; Visit Provider Physician Assistant
DX: F41.8 Other specified anxiety disorders (principal); R06.2 Wheezing; J30.9 Allergic rhinitis, unspecified; J18.9 Pneumonia, unspecified organism

== ENCOUNTER → 2024-10-09 12:49 | Outpatient (BNVA) | payer OTHER, SELFPAY | PROVIDERS: PCP Internal Medicine; Visit Provider Physician Assistant ==

== ENCOUNTER 2024-10-13 07:30 | Outpatient (REF) | payer OTHER, SELFPAY ==
--- NOTE | ~2024-10-13 | XR_ITS ---
CLINICAL HISTORY: J18.9 - Pneumonia, unspecified organism 2 view chest x-ray Comparison: None Findings: No consolidation or effusion. Heart size is normal. No acute fracture. IMPRESSION: No acute cardiopulmonary abnormality. This document has been electronically signed by: Peace Fleming on 10/13/2024 08:10:57
--- OUTSIDE RECORDS SUMMARY | 2024-10-13 07:33 | XMS_ITS | Clinical Summary ---
Author Organization [facility] Address [address] [place] [address] Phone Care Team Providers Care Folder Tier Name Role Phone Danna Bergeron MD Primary [...] disorder) 10/11/2021 Subclinical hypothyroidism 07/24/2018 Immunocompromised state ([facility] V24) 02/24/2011 Glaucoma 07/02/2009 Overweight 10/10/2007 Pure [...] Site/Laterality Comments OTHER SURGICAL HISTORY 2007 PROCEDURE: [place] VITRECTOMY PARS PLANA REMOVE INT MEMB RETINA; [...] Maintenance Results * COLONOSCOPY Anesthesia - MAC; [facility] ENDOSCOPY (06/12/2024 2:32 PM EST) Anatomical Region Laterality Modality Endoscopy 06/12/2024 2:17 PM EST Impressions 06/12/2024 2:35 PM EST - The entire examined colon is normal on direct and ? retroflexion views. ? - No specimens collected. Recommendation: ?- Discharge patient to home. ? - Repeat colonoscopy in 10 years for screening ? purposes. Narrative 06/12/2024 2:35 PM EST [facility] GI Patient Name: Molly Forbes Procedure [...] verified by the physician, the nurse, the pet sitting ? and the aviation technician in the pre-procedure area in the [...] neoplasm ? of colon CPT copyright 2020 [employer]. All rights reserved. The codes documented in this report are preliminary and upon cell feed department supervisor review may be revised to meet current compliance requirements. Yanick Muniz MD 06/12/2024 2:35:50 PM This report has been signed electronically.Yanick Muniz MD Number of Addenda: 0 Note Initiated On: 06/12/2024 2:17 PM Scope Withdrawal Time: 0 hours 7 minutes 48 seconds Scope In: 2:21:02 PM Scope Out: 2:33:17 PM ? Endoscopy Department at [facility] - [address] [place] [address], ? [place] [address] Procedure Note Yanick Muniz MD - 06/12/2024 [facility] GI Patient Name: Molly Forbes Procedure [...] the physician, the nurse, theanesthetist and the aviation technician in the pre-procedure area in the [...] for malignantneoplasm of colon CPT copyright 2020 [employer]. All rights reserved. The codes documented in this report are preliminary and upon cell feed department supervisor reviewmay be revised to meet current compliance requirements. Yanick Muniz MD 06/12/2024 2:35:50 PM This report has been signed electronically.Yanick Muniz MD Number of Addenda: 0 Note Initiated On: 06/12/2024 2:17 PM Scope Withdrawal Time: 0 hours 7 minutes 48 seconds Scope In: 2:21:02 PM Scope Out: 2:33:17 PM Endoscopy Department at [address] [address] IMPRESSION: - The entire examined colon is [...] * Cervical Cancer Screening: HPV (04/18/2013) Pathologist [facility] Cervical Cancer Screening: HPV Abstracted ,Negative Historical Provider HEALTH MAINTENANCE Final Result from Last 3 Months or Most Recently Relevant to Health Maintenance Insurance MELINDA ROSAS [id number] Care Teams Folder Tier Relationship Specialty Start Date End Date Danna Bergeron MD [address] [place] [id number] PCP - General Internal Medicine 03/08/22
== END 2024-10-13 07:31 | disposition home or self-care (01) ==
LOC: HO.XRAY 07:30
PROVIDERS: PCP Internal Medicine; Visit Provider Physician Assistant
DX: J18.9 Pneumonia, unspecified organism (principal)
CPT/HCPCS: 71046

== ENCOUNTER → 2024-10-13 07:36 | Outpatient (BNV) | payer OTHER, SELFPAY | PROVIDERS: PCP Internal Medicine; Visit Provider Radiology Vascular & Interventional Radiology | DX: J18.9 Pneumonia, unspecified organism (principal) | CPT/HCPCS: 71046 ==

== ENCOUNTER 2025-02-06 08:26 | Outpatient (AMB) | payer BC, SELFPAY ==
--- NOTE | 2025-02-06 08:32 | A.OFFPC_ITS ---
Vital Signs 02/06/25 08:37 Height 5 ft 0.23 in Weight 166 lb BMI 32.2 BP 104/82 Blood Pressure Location Lt brachial Position Sitting Respiration 12 Pulse 93 Pulse Source Pulse Oximeter Temp 98.5 F Temp Source Oral Pulse Oximetry (%) 99 Oxygen Delivery Method Room Air Intake Visit Reasons: cpe Intake Note: Physical Physics Professor Required: No Allergies No Known Allergies Allergy (Verified 02/06/25 08:35) Tobacco use date assessed: 10/09/24 Dental Screening Dental Screen Date: 05/19/24 HPI HPI Comments History of Present Illness Details The patient is a 49 year old female with a past medical history of depression/anxiety, memory loss presenting for physical exam BH: stable on effexor, memantine. Previously on zoloft-stopped being effective Seeing ophtho-Tanvir Sexton. Notes left second toenail fungus, Tried topicals without improvement UTD on mammogram-[facility] Sees [facility] landscape nurseryman Dr Youssef Colonoscopy-[place] Td 2018 ROS CONSTITUTIONAL: Denies weight loss, fever and chills. HEENT: sinus congestion RESPIRATORY: Denies SOB and cough. CV: Denies palpitations and CP GI: Denies abdominal pain, nausea, vomiting and diarrhea. : Denies dysuria and urinary frequency. MSK: Denies new myalgia and joint pain. SKIN: see HPI NEUROLOGICAL: Denies headache PSYCHIATRIC: Denies recent changes in mood. PHYSICAL EXAM: GENERAL: Alert and oriented x 3. NAD EYES: EOMI. Anicteric. HENT: boggy nasal mucosa LUNGS: Clear to auscultation bilaterally. CARDIOVASCULAR: Regular rate and rhythm. No murmur. No JVD. ABDOMEN: Soft, non-tender +bs EXTREMITIES: No edema. Non-tender. SKIN: No rashes or lesions. Warm. NEUROLOGIC: No focal neurological deficits. CN II-XII grossly intact PSYCHIATRIC: Cooperative. 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 Current occupational exposures/hazards: No Cognitive needs: No Hearing needs: No Vision needs: No Questionnaire Thrive Questionnaire Date Thrive assessed: 09/02/24 I am a: Patient What is your living situation today?: I have a steady place to live Within the past 12 months, did the food you bought not last and you didn't have the money to get more?: Never true Within the past 12 months, did you worry whether your food would run out before you got money to buy more?: Never true Do you have trouble paying for medicines?: No Do you have trouble getting transportation to medical appointments?: No Do you have trouble paying your heating and electricity bill?: No Do you have trouble taking care of your child, family member or friend?: No Do you have trouble with day-to-day activities such as bathing, preparing meals, shopping, managing finances, etc.?: No Are you currently unemployed and looking for a job?: No Are you interested in more education?: No Please select the resources that you would like help with: None Currently or been in a relationship where the following occur: No concerns reported THRIVE Score: 0 AUDIT C Alcohol Use Questionnaire (AUDIT-C) 1. How often do you have a drink containing alcohol?: Monthly or less 2. How many drinks containing alcohol do you have on a typical day when you are drinking?: 1 or 2 3. How often do you have six or more drinks on one occasion?: Never Total Score: 1 ODETTE-7 AMB Questionnaire ODETTE-7 Date ODETTE - 7 assessed: 09/03/24 Source: Developed by Drs. Piyush Moreno, Rose Marie Burnett, Jordy Mccallum and colleagues, with an educational simran from [employer]. Physical exam (Primary Care) Vital Signs: Last Vital Signs Temp 98.5 F 02/06/25 08:37 Pulse 93 02/06/25 08:37 Resp 12 02/06/25 08:37 BP 104/82 02/06/25 08:37 Pulse Ox 99 02/06/25 08:37 Oxygen Delivery Method Room Air 02/06/25 08:37 BMI result Body Mass Index 32.2 Tobacco/Smoking Status: Tobacco use Status Tobacco use date assessed 10/09/24 02/06/25 08:34 Patient Tobacco Use Status Never used Tobacco 02/06/25 08:34 e-Cigarette/Vaping Use Never Used 02/06/25 08:34 Thrive Assessment: Date of Thrive Assessment Date Thrive assessed 09/02/24 02/06/25 08:34 Currently or been in a relationship where the following occur: No concerns reported Coding Level of Care Code Est Pt Prev Care 40-64y(72167) Diagnoses Physical exam Z00.00 Assessment & Plan Assessment & Plan (1) Physical exam: Code(s): Z00.00 - Encounter for general adult medical examination without abnormal findings Plan CPE Interval history reviewed Preventive measures for age discussed. UTD Labs ordered Depression stable on current medications Orders: Orders Vitamin B12 and Folate Today F41.9 - Anxiety disorder, unspecified, R35.89 - Other polyuria, R63.5 - Abnormal weight gain, Z13.0 - Encounter for screening for diseases of the blood and blood-forming organs and certain disorders involving the immune mechanism, Z13.220 - Encounter for screening for lipoid disorders, Z13.228 - Encounter for screening for other metabolic disorders Complete Blood Count Auto Diff Today F41.9 - Anxiety disorder, unspecified, R35.89 - Other polyuria, R63.5 - Abnormal weight gain, Z13.0 - Encounter for screening for diseases of the blood and blood-forming organs and certain disorders involving the immune mechanism, Z13.220 - Encounter for screening for lipoid disorders, Z13.228 - Encounter for screening for other metabolic disorders Comprehensive Met. Panel Today F41.9 - Anxiety disorder, unspecified, R35.89 - Other polyuria, R63.5 - Abnormal weight gain, Z13.0 - Encounter for screening for diseases of the blood and blood-forming organs and certain disorders involving the immune mechanism, Z13.220 - Encounter for screening for lipoid disorders, Z13.228 - Encounter for screening for other metabolic disorders Lipid Panel Today F41.9 - Anxiety disorder, unspecified, R35.89 - Other polyuria, R63.5 - Abnormal weight gain, Z13.0 - Encounter for screening for diseases of the blood and blood-forming organs and certain disorders involving the immune mechanism, Z13.220 - Encounter for screening for lipoid disorders, Z13.228 - Encounter for screening for other metabolic disorders Liver Panel 4 Weeks R79.89 - Other specified abnormal findings of blood chemistry Hemoglobin A1c Today F41.9 - Anxiety disorder, unspecified, R35.89 - Other polyuria, R63.5 - Abnormal weight gain, Z13.0 - Encounter for screening for diseases of the blood and blood-forming organs and certain disorders involving the immune mechanism, Z13.220 - Encounter for screening for lipoid disorders, Z13.228 - Encounter for screening for other metabolic disorders Referrals [employer] Nutrition Referral R63.5 - Abnormal weight gain Medications: New terbinafine HCl 250 mg PO DAILY 90 tabs 0RF
[2025-02-06 08:37] VITALS: BP 104/82; PULSE 93; RESP 12; TEMP 36.9; O2SAT 99; BMI 32.2
--- OUTSIDE RECORDS SUMMARY | 2025-02-06 08:52 | XMS_ITS | Clinical Summary ---
Author Organization [facility] Address [address] [place] [address] Phone Care Team Providers Care Fundraising Specialist Name Role Phone Danna Bergeron MD Primary [...] disorder) 10/11/2021 Subclinical hypothyroidism 07/24/2018 Immunocompromised state ([facility] V24) 02/24/2011 Glaucoma 07/02/2009 Overweight 10/10/2007 [...] Site/Laterality Comments OTHER SURGICAL HISTORY 2007 PROCEDURE: [place] VITRECTOMY PARS PLANA REMOVE INT MEMB RETINA; [...] 64 06/12/2024 2:53 PM EST Temperature 35.9 C (96.7 F) 06/12/2024 2:33 PM EST Respiratory Rate 19 06/12/2024 2:53 PM EST [...] Screening: P ap Smear 04/18/2016 04/18/2013, 04/18/2013 HIV Screening 05/13/2022 Hepatitis C Screening 05/13/2022 Social Influencers of Health Screening 05/13/2022 Pneumococcal Vaccine: 50+ Years (1 of 1 - PCV) 02/20/2024 Zoster Vaccines (1 of 2) 02/20/2024 Depression Screening 06/04/2024 COVID-19 Vaccine (4 - 2024-2 6 season) 2025 05/18/2021, 09/15/2020, 08/25/2020 Influenza Vaccine (#1) 2025 2, 03/14/2021, 05/22/2020 DTaP,Tdap,and Td Vaccines (3 - [...] Maintenance Results * COLONOSCOPY Anesthesia - MAC; [facility] ENDOSCOPY (06/12/2024 2:32 PM EST) Anatomical Region Laterality Modality Endoscopy 06/12/2024 2:17 PM EST Impressions 06/12/2024 2:35 PM EST - The entire examined colon is normal on direct and retroflexion views. - No specimens collected. Recommendation: - Discharge patient to home. - Repeat colonoscopy in 10 years for screening purposes. Narrative 06/12/2024 2:[address] [facility] GI Patient Name: Molly Forbes Procedure Date: [...] the procedure, a History and Physical was performed, and patient medications and allergies were reviewed. The patient is competent. The risks and benefits of the procedure and the sedation options and risks were discussed with the patient. All questions were answered and informed consent was obtained. Patient identification and proposed procedure were verified by the physician, the nurse, the music education adjunct professor and the assistant technician in the pre-procedure area in the endoscopy suite. Mental Status Examination: alert and oriented. Airway Examination: normal oropharyngeal airway and neck mobility. Respiratory Examination: clear to auscultation. CV Examination: normal. Prophylactic Antibiotics: The patient does not require prophylactic antibiotics. Prior Anticoagulants: The patient has taken no anticoagulant or antiplatelet agents. ASA Grade Assessment: II - A patient with mild systemic disease. After reviewing the risks and [...] monitored throughout the procedure. The physical status of the patient was re-assessed after the procedure. After I obtained informed consent, the scope was passed under direct vision. Throughout the procedure, the patient's blood pressure, pulse, and oxygen saturations were monitored continuously. The Olympus Colonoscope was introduced through the anus and [...] Professional --- Z12.11, Encounter for screening for malignant neoplasm of colon CPT copyright 2020 [employer]. All rights reserved. The codes documented in this report are preliminary and upon high school science tutor review may be revised to meet current compliance requirements. Yanick Muniz MD 06/12/2024 2:35:50 PM This report has been signed electronically.Yanick Muniz MD Number of Addenda: 0 Note Initiated On: 06/12/2024 2:17 PM Scope Withdrawal Time: 0 hours 7 minutes 48 seconds Scope In: 2:21:02 PM Scope Out: 2:33:17 PM Endoscopy Department at [facility] - [address] [place] [phone] Procedure Note Yanick Muniz MD - 06/12/2024 [facility] GI Patient Name: Molly Forbes Procedure Date: [...] the physician, the nurse, theanesthetist and the assistant technician in the pre-procedure area in the [...] for malignantneoplasm of colon CPT copyright 2020 [employer]. All rights reserved. The codes documented in this report are preliminary and upon high school science tutor reviewmay be revised to meet current compliance requirements. Yanick Muniz MD 06/12/2024 2:35:50 PM This report has been signed electronically.Yanick Muniz MD Number of Addenda: 0 Note Initiated On: 06/12/2024 2:17 PM Scope Withdrawal Time: 0 hours 7 minutes 48 seconds Scope In: 2:21:02 PM Scope Out: 2:33:17 PM Endoscopy Department at [address] [address] IMPRESSION: - The entire examined colon is [...] * Cervical Cancer Screening: HPV (04/18/2013) Pathologist [facility] Cervical Cancer Screening: HPV Abstracted ,Negative us Historical Provider HEALTH MAINTENANCE Final Result from Last 3 Months or Most Recently Relevant to Health Maintenance [place] [address] [place] [address] Care Teams Fundraising Specialist Relationship Specialty Start Date End Date Danna Bergeron MD [address] [place] [id number] PCP - General Internal Medicine 03/08/22
--- OUTSIDE RECORDS SUMMARY | 2025-02-06 08:52 | XMS_ITS ---
Author Name [facility] Organization Unknown Care Team Organization Name Specialty Phone Email Start Date End Da te [facility] Danna Bergeron MD Primary Care 02/08/2023 01/21/2024
== END 2025-02-06 09:00 | disposition home or self-care (01) ==
PROVIDERS: PCP Internal Medicine; Visit Provider Internal Medicine
DX: Z00.00 Encounter for general adult medical examination without abnormal findings (principal)

== ENCOUNTER 2025-02-06 08:26 | Outpatient (REF) | payer MEDICARE, SELFPAY ==
[2025-02-06 11:12] LABS: MANUAL DIFF FLAG NO
[2025-02-06 11:26] LABS: Hematocrit 39.8 % (37.0-47.0); Hemoglobin 13.9 g/dl (12.0-16.0); Imm Gran Abs Auto 0.00 X10*3/uL (0.00-0.03); Imm Gran Pct Auto 0.0 % (0.0-0.4); Lymphocytes Absolute Auto 1.1 X10*3/uL (1.2-4.9); Mean Corpuscular HGB Conc 34.9 g/dl (31.0-35.0); Mean Corpuscular Hemoglobin 31.7 pg (27.0-33.0); Mean Corpuscular Volume 90.9 fL (80.0-98.0); NRBC Abs Auto 0.000 X10*3/uL (0.0-0.012); NRBC Pct Auto 0.0 /100WBC (0.0-0.2); Platelet Count 273 X10*3/uL (160-400); Red Blood Count 4.38 X10*6/uL (4.20-5.50); White Blood Count 4.4 X10*3/uL (4.8-10.8)
[2025-02-06 11:46] LABS: Alanine Aminotransferase 25 U/L (0-31); Albumin Level 4.6 g/dL (3.5-5.0); Alkaline Phosphatase 65 U/L (39-117); Anion Gap 12 (12-20); Aspartate Amino Transferase 29 U/L (5-31); Blood Urea Nitrogen 19 mg/dL (9-16); Calcium 9.7 mg/dL (8.4-10.2); Carbon Dioxide 29 mmol/L (22-29); Chloride 104 mmol/L (96-108); Cholesterol 205 mg/dL (<200); Estimated Glomerular Filt Rate > 60; HDL Cholesterol 66 mg/dL (>40); Potassium 4.5 mmol/L (3.3-5.1); Sodium 140 mmol/L (135-145); Total Protein 8.3 g/dL (6.5-8.0); Triglycerides 77 mg/dL (<150)
[2025-02-06 12:24] LABS: Folate 10.9 ng/mL (> or = 4.0); Vitamin B12 575 pg/mL (200-900)
== END 2025-02-06 08:27 | disposition home or self-care (01) ==
LOC: HO.WFDLDS 08:26
PROVIDERS: PCP Internal Medicine; Visit Provider Internal Medicine
DX: Z13.220 Encounter for screening for lipoid disorders (principal); Z13.0 Encounter for screening for diseases of the blood and blood-forming organs and certain disorders involving the immune mechanism; Z13.228 Encounter for screening for other metabolic disorders; Z00.00 Encounter for general adult medical examination without abnormal findings; F41.9 Anxiety disorder, unspecified; R63.5 Abnormal weight gain; R35.89 Other polyuria
CPT/HCPCS: 36415; 80053; 80061; 82607; 82746; 83036; 85025

== ENCOUNTER 2025-04-02 08:48 | Outpatient (AMB) | payer MEDICARE, SELFPAY ==
--- NOTE | 2025-04-02 09:15 | A.OFFVIS_ITS ---
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 Takes a daily multivitamin etoh/smoking: Denies BS Monitoring Most Recent Diabetes Results: Cholesterol, (<200) 205 mg/dL H 02/06/25 HDL Cholesterol, (>40) 66 mg/dL 02/06/25 Triglycerides, (<150) 77 mg/dL 02/06/25 Creatinine, (0.5-1.4) 0.76 mg/dL 02/06/25 BUN, (9-16) 19 mg/dL H 02/06/25 Sodium, (135-145) 140 mmol/L 02/06/25 Potassium, (3.3-5.1) 4.5 mmol/L 02/06/25 Chloride, (96-108) 104 mmol/L 02/06/25 Carbon Dioxide, (22-29) 29 mmol/L 02/06/25 Calcium, (8.4-10.2) 9.7 mg/dL 02/06/25 AST, (5-31) 29 U/L 02/06/25 ALT, (0-31) 25 U/L 02/06/25 Total Protein, (6.5-8.0) 8.3 g/dL H 02/06/25 Albumin, (3.5-5.0) 4.6 g/dL 02/06/25 CKM-Vooiqhm-Rv.Jeor Equation Height: 5 ft 3 in Weight: 164 lb Resting Metabolic Rate: 1331.35 Calculated Activity Level: Sedentary Calories Needed to Maintain Weight: 1597.62 Diagnosis Nutrition problem #1: overweight/obesity As related to (etiology) #1: diagnosis As evidenced by (sign/symptom) #1: high BMI PFSH Medical History (Updated 10/30/25 @ 09:[address], LDN) Fluid level behind tympanic membrane of both ears Dizziness Bilateral cataracts Surgical History H/O vitrectomy Family History Other Family history not known due to adoption Social History (Updated 02/06/25 @ 08:42 by Juli Umanzor CMA) Housing: House Alcohol intake: current Patient Tobacco Use Status: Never used Tobacco e-Cigarette/Vaping Use: Never Used service: No Current occupational status: employed 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 Current occupational exposures/hazards: No Cognitive needs: No Hearing needs: No Vision needs: No Assessment & Plan Assessment & Plan (1) Weight gain: Comment: BMI 32.2 Code(s): R63.5 - Abnormal weight gain Category: Medical Plan: current wt: 74 kg ( ) est kcal needs as per MSJ: 1600 est protein needs as per 1 g/kg BW: 70-80 est fluid needs as per 30 ml/kg BW: 2200 Recommended fiber > 12 g /day and gradually increase up to 25-28 g /day or as tolerated Nutrition topics discussed : Reviewed (R), Pt verbalized understanding (V) , not applicable (N/A) R, : Healthy Plate Method Concept: R, : Carbohydrates: food sources of carbohydrates, relationship of carbohydrates to blood glucose, fatty liver GI health. Recommended total amount of carbohydrates per meals and snack. Differences between simple carbohydrates and complex carbohydrates R, : Lean protein foods including vegan , vegetarian sources of protein. Benefits of protein (including but not limited to healing, nutritional value , benefits in weight loss, glucose control R, : Fats : Source of fats, benefits of fats. Difference between saturated and unsaturated fats. Saturated fats and its contribution to inflammation R, V, N/A: Fiber: food sources and role of fiber in the diet (including but not limited to its role as a prebiotic, benefits in constipation, role in IBS , role in glucose control and cholesterol level) R, : Hydration: role of hydration and prevention of dehydration or over hydration. Foods and water content. R, V, N/A: Vitamins and Minerals in foods and supplements R, V, N/A: Interpreting food labels, including serving size, macronutrients, vitamins, minerals, allergens, ingredient list , % daily value Patient Instructions: Work on choosing lean protein foods, and complex carbohydrates reducing total carb per meal to less than 45 g and 0 to less than 20 g of carbohydrate as a snack, work on having 3 meals a day and 0-2 snacks a day Keep hydrated by choosing low sugar or no sugar added beverages Practice mindful eating Coding Level of Care Code Nutr Indiv Intake (73040) Diagnoses Weight gain R63.5 Time Spent (min) 30
[2025-04-02 09:18] VITALS: BMI 28.9
[2025-04-09 10:25] VITALS: BMI 29.0
== END 2025-04-02 11:36 | disposition home or self-care (01) ==
LOC: HO.ENCR 08:49
PROVIDERS: PCP Internal Medicine; Visit Provider Dietitian, Registered
DX: R63.5 Abnormal weight gain (principal)

== ENCOUNTER → 2025-04-02 08:48 | Outpatient (BNVA) | payer MEDICARE, SELFPAY | PROVIDERS: PCP Internal Medicine; Visit Provider Dietitian, Registered | DX: R63.5 Abnormal weight gain (principal) | CPT/HCPCS: 97802 ==